=== PATIENT | male | born 1975 | race Caucasian/White ===

== ENCOUNTER 2023-01-04 22:35 | Emergency (ER) | payer OTHER ==
[~2023-01-04] VITALS: Ht 188 cm; Wt 65.8 kg
[2023-01-04 22:54] VITALS: BP 145/90
--- NOTE | 2023-01-04 22:57 | NUR ---
to lobby a/w bed ambulatory
--- NOTE | 2023-01-05 00:16 | NUR ---
received call from admitting that patient left facilty no longer wishing to receive care.
== END 2023-01-05 00:16 | disposition left against medical advice (07) ==
LOC: MED 22:35
DX: L02.811 Cutaneous abscess of head [any part, except face] (principal); Z53.21 Procedure and treatment not carried out due to patient leaving prior to being seen by health care provider